=== PATIENT | female | born 1960 | race Caucasian/White ===

== ENCOUNTER 2016-09-08 15:58 | Emergency (ER) | payer MEDICAID ==
[~2016-09-08] VITALS: Ht 165.1 cm; Wt 78.9 kg
[2016-09-08 16:20] VITALS: BP 146/96
[2016-09-08] MEDS ORDERED: metFORMIN HYDROCHLORIDE 850 MG TAB PO ONE (18:30)
== END 2016-09-08 18:25 | disposition home or self-care (01) ==
LOC: ER 16:08
DX: E11.9 Type 2 diabetes mellitus without complications (principal); Z98.890 Other specified postprocedural states; Z76.0 Encounter for issue of repeat prescription
CPT/HCPCS: 82962